=== PATIENT | male | born 1940 | race Caucasian/White ===

== ENCOUNTER 2019-01-07 05:13 | Observation (INO) ==
[2019-01-07] MEDS ORDERED: Sodium Chlor 0.9% Inj 500 ML IV.CONT ONE (05:45)
[2019-01-07] MEDS ORDERED: Metoprolol Tartrate 25 MG Tablet PO ONE (05:45)
[2019-01-07] MEDS ORDERED: Chlorhexidine Gluconate 2% 1 Pack (2 Cloths) TOPICAL ONE (05:45)
[2019-01-07] MEDS ORDERED: ceFAZolin 2 GM Premix Inj 2 GM/50 ML PIGGYBACK IV.SIG SCH (06:00)
[2019-01-07] MEDS ORDERED: Vancomycin Inj 1,000 MG in Sodium Chlor 0.9% Inj 250 ML IV.SIG SCH (06:00)
[2019-01-07] MEDS ORDERED: Phenylephrine/NS 1000 MCG/10ML Syringe IV.PUSH ONE (07:10)
[2019-01-07] MEDS ORDERED: Lidocaine PF 1% Inj 5 ML Syringe INFILTRATN ONE (07:10)
[2019-01-07] MEDS ORDERED: Post-op Orders (for Pharmacy) OTHER STA (08:38)
[2019-01-07] MEDS ORDERED: Morphine Inj 4 MG/ML Vial IV.PUSH PRN (08:38)
--- NOTE | 2019-01-07 08:43 | P.OP ---
- Preoperative Diagnosis (1) Closed right calcaneal fracture Date of procedure: 01/07/19 Procedure: Open reduction internal fixation right calcaneus Anesthesia: GETA Surgeon: Jerardo Wilson MD Extension Service Specialist: FRANCIS Frankel PA-C The surgical procedure was assisted by my physician contract assistant. My P.A. presence was necessary throughout this case for the manipulation and positioning of the surgical extremity. My P.A. was assisting me throughout the duration of this procedure. The skill set of a physician contract assistant was medically necessary to complete this procedure. During the surgical case the press technician was working at the back table and the physician contract assistant was directly assisting me. Operation and Findings: Tourniquet time: 43 minutes at 250 mmHg Implants used: Synthes Details of procedure: Informed consent obtained, operative site was marked. The foot and ankle were seen and evaluated this morning. Soft tissue swelling had significantly improved and appeared to be ready for surgery. He was brought to the operating room and placed on the operating room table. He was given intravenous sedation, general endotracheal anesthesia. He received IV antibiotics and was placed in the lateral decubitus position. Foot and leg were prepped with alcohol, followed by Hibiclens, draped in usual sterile fashion. A time out procedure was preformed. The procedure began with a 4 centimeter incision over the lateral aspect of the calcaneus centers over the subtalar joint. A full thickness flap was carefully elevated. The perineal tendons were also mobilized. Periosteum was elevated off the calcaneous. At this point the leg was elevated. The tourniquet was inflated. Attention was now turned to exposure of the calcaneus. The lateral wall was comminuted. A Steinmann pin was placed into the talus and into the calcaneus. Laminar legal records manager was now placed to help distract the fracture. Articular surface was now visualized. Articular surface was in several fragments. The medial fragment was elevated and reduced up to the talus and the K-wire was used to hold provisional fixation. Next, the lateral and posterior fragments of the posterior facet were reduced. The talus was used as a template for reduction. The K-wires were used to hold provisional fixation. The laminar legal records manager was now used to distract the posterior tuberosity. A Shands pin was placed to help joystick the gravedigger tuberosity into appropriate position. Multiple K-wires result provisional fixation. Multiplanar fluoroscopy confirmed well aligned fracture. The anterior process was now reduced. This keyed into appropriate position. Additional K wires were used to hold provisional fixation. At this point a Synthes calcaneus plate was selected. Plate was placed underneath the peroneal tendons. Plate was provisionally held the bone with K wires. 2.7 cortical lag screws were placed through the plate to compress the posterior facet fragments. Good compression was obtained. Additional cortical and locking screws were placed into the plate. 4 small percutaneous incisions were made around the posterior heel. 4 long 3.5 cortical screws were placed in the posterior tuberosity into the anterior process. All screws were predrilled and premeasured for appropriate lengths. Fluoroscopy confirmed appropriate alignment of fracture. Final fluoroscopy confirmed well aligned fracture with well-placed hardware. Wound was thoroughly irrigated. Tourniquet was released. Hemostasis was confirmed. Fascia was closed with 0 Vicryl, subcutaneous tissues closed with 3-0 Vicryl, and skin was closed with 3-0 nylon. Sterile dressings were applied. Patient was placed into a well molded well-padded splint. Patient was transferred to recovery in stable condition.
[2019-01-07] MEDS ORDERED: *morphine SULFATE 10 MG/ML PERIprocedure ONLY ONE (09:22)
[2019-01-07] MEDS ORDERED: *Meperidine Inj 25 MG/ML Vial PERIprocedural Use ONLY ONE (09:38)
[2019-01-07] MEDS: Ketorolac Inj 30 MG/ML (IVP) Vial IV.PUSH SCH ×2 (10:08→22:47)
--- NOTE | 2019-01-07 11:55 | P.PNOP ---
Subjective Interval history: Transferred to PACU in stable condition Physical Exam Vital signs: Vital Signs 01/07/19 06:29 01/07/19 09:05 01/07/19 09:19 Temperature 97.6 F 98 F Pulse Rate 60 67 72 Respiratory Rate 16 13 15 Blood Pressure 126/67 153/78 H 146/78 H Pulse Oximetry 98 96 98 01/07/19 09:30 01/07/19 09:45 Temperature Pulse Rate 71 70 Respiratory Rate 16 16 Blood Pressure 151/69 H 147/74 H Pulse Oximetry 96 97 Intake & Output 01/06/19 01/07/19 01/07/19 18:59 06:59 18:59 Intake Total 650 / 650 Output Total 20 / 20 Balance 630 / 630 Weight 87.8 kg Intake: IV 250 / 250 Vancomycin Inj 1,000 MG In NS 250 / 250 Inj 250 ML @ 250 mls/hr IV.SIG [employer] [facility] Rx#:[id number] Anesthesia Amount 400 / 400 Output: Estimated Blood Loss 20 / 20 Other: Weight On Admission 87.8 kg Narrative: Right lower extremity: Dry dressing intact. Splint in place. Brisk capillary refill. Assessment and Plan - Assessment and Plan Right calcaneus ORIF POD #0 Nonweightbearing right lower extremely Elevation Maintain splint Plan for discharge tomorrow on 01/08/2019 DVT prophylaxis aspirin 81 mg twice daily [place] 10 prescription is on chart Follow-up with Dr. Douglas or PA in 2 weeks
[2019-01-07] MEDS: Gabapentin 300 MG Capsule PO SCH ×2 (13:06→18:15)
[2019-01-07] MEDS: Calcium/Vitamin D 250/125 MG Tablet PO SCH ×2 (13:06→18:15)
--- NOTE | 2019-01-07 14:39 | ECG ---
Date Performed: 01/07/2019 Time Performed: 06:27:58 PTAGE: 78 years EKG: SINUS BRADYCARDIA BORDERLINE ECG NO PREVIOUS TRACING DOCTOR: Latoya Raphael Interpretating Date/Time 01/07/2019 14:33:09
[2019-01-07] MEDS: ceFAZolin 2 GM Premix Inj 2 GM/50 ML PIGGYBACK IV.SIG SCH ×2 (15:10→22:47)
[2019-01-07] MEDS: Vancomycin Inj 1,000 MG in Sodium Chlor 0.9% Inj 250 ML IV.SIG SCH (18:42)
--- NOTE | 2019-01-07 19:31 | XR ---
EXAM DATE: 01/07/2019 7:26 PM EST AGE/SEX: 78 years / Male INDICATIONS: Right calcaneus fracture ORIF. CLINICAL DATA: This is the patient's initial encounter. Patient reports that signs and symptoms have been present for 1 day and indicates a pain score of Nonresponsive. MEDICAL/SURGICAL HISTORY: Non-responsive. Non-responsive. COMPARISON: POI, CT ANKLE W/O CONTRAST, RIGHT, 01/05/2019. . FINDINGS: 4 images from the OR have been submitted. The patient has 4 long screws through the calcaneus from po sterior approach. There is also a plate along the lateral subtalar region. The hardware appears well placed. The calcaneus appears aligned. CONCLUSION: Good placement of surgical hardware for ORIF. Electronically signed by: Alonzo Hoffmann MD Board Certified Radiologist 01/07/2019 7:29 PM EST
[2019-01-07] MEDS: Senna/Docusate Sodium 8.6/50 MG Tablet PO SCH ×2 (20:10→20:13)
[2019-01-08 05:26] VITALS: RESP 18; O2SAT 95
[2019-01-08] MEDS: ceFAZolin 2 GM Premix Inj 2 GM/50 ML PIGGYBACK IV.SIG SCH (06:09)
[2019-01-08] MEDS: Vancomycin Inj 1,000 MG in Sodium Chlor 0.9% Inj 250 ML IV.SIG SCH (06:39)
--- NOTE | 2019-01-08 06:57 | P.PNOP ---
Subjective Interval history: Resting comfortably with minimal pain. Splint is intact and elevated. Physical Exam Vital signs: Vital Signs 01/07/19 09:05 01/07/19 09:19 01/07/19 09:30 Temperature 98 F Pulse Rate 67 72 71 Respiratory Rate 13 15 16 Blood Pressure 153/78 H 146/78 H 151/69 H Pulse Oximetry 96 98 96 01/07/19 09:45 01/07/19 10:00 01/07/19 10:15 Temperature 97.6 F Pulse Rate 70 80 78 Respiratory Rate 16 16 17 Blood Pressure 147/74 H 140/72 147/80 H Pulse Oximetry 97 99 94 L 01/07/19 10:30 01/07/19 10:38 01/07/19 11:00 Temperature Pulse Rate 79 81 Respiratory Rate 17 16 16 Blood Pressure 151/75 H 142/73 H Pulse Oximetry 95 95 01/07/19 11:30 01/07/19 12:00 01/07/19 12:10 Temperature 97.8 F Pulse Rate 78 76 Respiratory Rate 16 16 Blood Pressure 139/73 136/71 Pulse Oximetry 96 95 95 01/07/19 12:42 01/07/19 16:00 01/07/19 19:49 Temperature 97 F L 98.5 F 98.3 F Pulse Rate 81 85 81 Respiratory Rate 18 20 18 Blood Pressure 150/74 H 133/67 131/63 Pulse Oximetry 98 94 L 94 L 01/07/19 23:24 01/08/19 00:00 01/08/19 04:07 Temperature 98.7 F 97.7 F Pulse Rate 75 63 Respiratory Rate 17 16 18 Blood Pressure 104/51 L 123/67 Pulse Oximetry 93 L 95 Intake & Output 01/07/19 01/07/19 01/08/19 06:59 18:59 06:59 Intake Total 700 / 700 1260 / 1260 Output Total 1120 / 1120 1000 / 1000 Balance -420 / -420 260 / 260 Weight 87.8 kg 87.8 kg 89.2 kg Intake: IV 300 / 300 300 / 300 Vancomycin Inj 1,000 MG In NS 250 / 250 250 / 250 Inj 250 ML @ 250 mls/hr IV.SIG Q12H [facility] Rx#:[id number] Ancef 2 GM Premix Inj 2 gm In 50 / 50 50 / 50 50 ml @ 100 mls/hr IV.SIG Q8H [facility] Rx#:[id number] Oral 960 / 960 Anesthesia Amount 400 / 400 Output: Urine 1100 / 1100 1000 / 1000 Estimated Blood Loss Other: # Voids 2 Date of Last Bowel Movement 01/06/19 01/06/19 # Bowel Movements 0 Weight On Admission 87.8 kg Narrative: Right lower extremity: No pain with hip or knee range of motion. Short leg splint in place. Intact sensation with active movement of toes Results - Imaging Impressions Foot X-Ray 01/07/19 00:00 CONCLUSION: Good placement of surgical hardware for ORIF. Assessment and Plan - Assessment and Plan Right calcaneus ORIF POD #1 Nonweightbearing right lower extremely Elevation Maintain splint Plan for discharge today DVT prophylaxis aspirin 81 mg twice daily [place] 10 prescription is on chart Follow-up with Dr. Douglas or PA in 2 weeks
--- NOTE | 2019-01-08 07:03 | P.DS ---
Date of admission: 01/07/19 08:38 Primary care physician: Sly Ware DO Attending physician on discharge: Jerardo Douglas Anticipated date of discharge: 01/08/19 Brief History from admission: Patient known to Dr. Douglas from office. Patient sustained a right calcaneus fracture from mechanical fall. After CT is ordered and examined due to the significant comminution of the fracture surgical intervention is recommended. Surgery scheduling is proceeded forward with and admitted to the hospital on for ORIF of the right calcaneus. DS: Diagnosis - Discharge Diagnosis (1) Closed right calcaneal fracture Status: Acute DS: Medications - Discharge Medications Prescriptions: hydrocodone-acetaminophen 1 tab PO Q4-6H PRN 7 Days #42 tab PRN Reason: Acute Pain Exception DS: Summary Hospital Course: Patient is admitted to the hospital and taken to the operating suite for open reduction internal fixation of the right calcaneus. Surgery is proceeded and continues without any complications. He is given a short leg splint and remains nonweightbearing. He has moderate pain and pain is controlled well. DVT prophylaxis of aspirin is proceeded. Due to pain control and ambulating well with walker is discharged day 1 on 01/08/2019 to home. He will keep splint intact - Time Spent with Patient Total time spent providing and/or coordinating discharge services: Greater than 30 minutes - Quality: VTE Deep Vein Thrombosis/Pulmonary Embolism Present on Admission: No Exam Vital signs: Vital Signs 01/07/19 09:05 01/07/19 09:19 01/07/19 09:30 Temperature 98 F Pulse Rate 67 72 71 Respiratory Rate 13 15 16 Blood Pressure 153/78 H 146/78 H 151/69 H Pulse Oximetry 96 98 96 01/07/19 09:45 01/07/19 10:00 01/07/19 10:15 Temperature 97.6 F Pulse Rate 70 80 78 Respiratory Rate 16 16 17 Blood Pressure 147/74 H 140/72 147/80 H Pulse Oximetry 97 99 94 L 01/07/19 10:30 01/07/19 10:38 01/07/19 11:00 Temperature Pulse Rate 79 81 Respiratory Rate 17 16 16 Blood Pressure 151/75 H 142/73 H Pulse Oximetry 95 95 01/07/19 11:30 01/07/19 12:00 01/07/19 12:10 Temperature 97.8 F Pulse Rate 78 76 Respiratory Rate 16 16 Blood Pressure 139/73 136/71 Pulse Oximetry 96 95 95 01/07/19 12:42 01/07/19 16:00 01/07/19 19:49 Temperature 97 F L 98.5 F 98.3 F Pulse Rate 81 85 81 Respiratory Rate 18 20 18 Blood Pressure 150/74 H 133/67 131/63 Pulse Oximetry 98 94 L 94 L 01/07/19 23:24 01/08/19 00:00 01/08/19 04:07 Temperature 98.7 F 97.7 F Pulse Rate 75 63 Respiratory Rate 17 16 18 Blood Pressure 104/51 L 123/67 Pulse Oximetry 93 L 95 Intake & Output 01/07/19 01/07/19 01/08/19 06:59 18:59 06:59 Intake Total 700 / 700 1260 / 1260 Output Total 1120 / 1120 1000 / 1000 Balance -420 / -420 260 / 260 Weight 87.8 kg 87.8 kg 89.2 kg Intake: IV 300 / 300 300 / 300 Vancomycin Inj 1,000 MG In NS 250 / 250 250 / 250 Inj 250 ML @ 250 mls/hr IV.SIG Q12H [facility] Rx#:[id number] Ancef 2 GM Premix Inj 2 gm In 50 / 50 50 / 50 50 ml @ 100 mls/hr IV.SIG Q8H [facility] Rx#:[id number] Oral 960 / 960 Anesthesia Amount 400 / 400 Output: Urine 1100 / 1100 1000 / 1000 Estimated Blood Loss 20 / 20 Other: # Voids 2 Date of Last Bowel Movement 01/06/19 01/06/19 # Bowel Movements 0 Weight On Admission 87.8 kg - Constitutional no acute distress - Routine HEENT Exam Head: Present: normocephalic, atraumatic Eye: Present: EOMI, PERRL ENT: Present: mucous membranes moist - Routine Neck Exam Absent: lymphadenopathy - Routine Chest/Breast/Axilla Exam Chest wall: Absent: tenderness - Routine Respiratory Exam Present: CTA bilaterally. Absent: accessory muscle use - Routine Cardiovascular Exam Present: RRR - Routine Abdominal Exam Present: soft. Absent: distended - Routine Extremities Exam Comments: Right lower extremity: No pain with hip or knee range of motion. Short leg splint in place. No drainage. Intact sensation distally. Results Procedures completed during hospitalization: Open reduction internal fixation of the right calcaneus - Impressions ITS Impressions Foot X-Ray 01/07/19 00:00 CONCLUSION: Good placement of surgical hardware for ORIF. Discharge Plan - Discharge Disposition Patient Disposition: Discharge Home - Discharge Condition Condition: Good - Discharge Order Discharge Orders: Discharge Order (Routine); Ordered 01/08/19 Ordered By: Gordo Trejo - Physicians Team Primary Care Provider: Sly Ware Attending Provider: Jerardo Douglas Rxs /Orders / Referrals /Forms Prescriptions: New aspirin 81 mg Tablet,Delayed Release (Dr/Ec) 81 mg PO Q12H RF: 0 hydrocodone-acetaminophen 10-325 mg Tablet 1 tab PO Q4-6H PRN (Reason: Acute Pain Exception) 7 Days Qty: 42 RF: 0 Continue amlodipine 10 mg Tablet 10 mg PO DAILY doxazosin 1 mg Tablet 1 mg PO DAILY hydrochlorothiazide 25 mg Tablet 25 mg PO DAILY pravastatin 20 mg Tablet 20 mg PO DAILY Discontinued aspirin [Aspir-81] 81 mg Tablet,Delayed Release (Dr/Ec) 81 mg PO DAILY hydrocodone-acetaminophen 5-325 mg Tablet 1 tab PO Q4-6H PRN (Reason: Pain) Referrals: Leonel Persaud PA [Physician Steam Hammer Operator] - 01/25/19 2:50 pm (PLEASE F/U WITH THE FOLLOWING PROVIDER ON SCHEDULED DATE IF UNABLE TO ATTEND PLEASE CALL [phone] TO RESCHEDULE.) Sly Ware, [Primary Care Provider] - See Instructions (PLEASE CALL AND SCHEDULE F/U APPT WITH PCP.) - Discharge Instructions Patient Printed Instructions: ORIF of a Calcaneus Fracture (DC), ORIF (DC)
[2019-01-08 08:38] VITALS: BP 121/68; PULSE 62; TEMP 98
[2019-01-08] MEDS ORDERED: hydroCHLOROthiazide 25 MG Tablet PO SCH (09:00)
[2019-01-08] MEDS ORDERED: amLODIPine 10 MG Tablet PO SCH (09:00)
[2019-01-08] MEDS: Gabapentin 300 MG Capsule PO SCH ×2 (11:15→11:22)
[2019-01-08] MEDS: Calcium/Vitamin D 250/125 MG Tablet PO SCH ×2 (11:15→11:17)
[2019-01-08] MEDS: Senna/Docusate Sodium 8.6/50 MG Tablet PO SCH (11:16)
[2019-01-08] MEDS: Doxazosin 1 MG Tablet PO SCH (11:17)
[2019-01-08] MEDS: Ketorolac Inj 30 MG/ML (IVP) Vial IV.PUSH SCH (11:18)
== END 2019-01-08 12:29 | disposition home or self-care (01) ==
LOC: HSDI 05:13 → HSDC 05:13 → N06 12:24
PROVIDERS: ADMIT Orthopaedic Surgery Orthopaedic Trauma; ATTEND Orthopaedic Surgery Orthopaedic Trauma
PROC: ORIFCAL (2019-01-07 07:10)
CPT/HCPCS: 73650; 76000; 93005; 94150; 96361; 96365; 96366; 96367; 96375; 96376; 97162; C1713; C1776; G0378; G8987; G8988; J0690; J1100; J1580; J1885; J2175; J2270; J2370; J2405; J2704; J3370; J7050; J7120